=== PATIENT | female | born 1970 | race Caucasian/White ===

== ENCOUNTER 2018-11-10 19:07 | Emergency (ER) | payer BC ==
[~2018-11-10] VITALS: Ht 152.4 cm; Wt 51.7 kg
[~2018-11-10 19:07] MED LIST: Ativan1 MG SL; BISA10S PR; CVS DISPOSABLE399 ML PR; DIPHENHYDRAMINE PO; DOCU100 PO; ENOX40I SC; FERR325 PO; HYDACE5; IBUP400 PO; Milk Of Ma400 MG/5 M PO; NAPR550 PO; Norco 5-325 Ta1 EACH PO; OXYACE5T PO; PANT40 PO; PROACE100 PO; Pepcid20 MG PO; RXNAPNA550 PO; RXPROACE PO; SENN187 PO
[2018-11-10 19:35] LABS: BASOPHILS ABSOLUTE AUTO 0.07 K/mm3 (0.00-0.23); BASOPHILS PERCENT AUTO 1 % (0-2); EOSINOPHILS ABSOLUTE AUTO 0.77 K/mm3 (0.00-0.68); EOSINOPHILS PERCENT AUTO 9 % (0-6); Hematocrit 43.8 % (33.0-51.0); Hemoglobin 14.7 g/dL (11.5-16.0); IMMATURE GRAN ABSOLUTE AUTO 0.02 K/mm3 (0.00-0.10); IMMATURE GRAN PERCENT AUTO 0 % (0-1); LYMPHOCYTES ABSOLUTE AUTO 2.03 K/mm3 (0.84-5.20); LYMPHOCYTES PERCENT AUTO 25 % (21-46); MONOCYTES ABSOLUTE AUTO 0.52 K/mm3 (0.16-1.47); MONOCYTES PERCENT AUTO 6 % (4-13); Mean Corpuscular HGB 31.9 pg (26.0-34.0); Mean Corpuscular HGB Conc 33.6 g/dL (31.5-36.5); Mean Corpuscular Volume 95 fL (80-100); Mean Platelet Volume 8.7 fL (9.1-12.4); NEUTROPHILS ABSOLUTE AUTO 4.77 K/mm3 (1.96-9.15); NEUTROPHILS PERCENT AUTO 58 % (41-73); Platelet Count 311 K/mm3 (150-400); RDW Coefficient Variation 12.4 % (11.7-14.2); RDW Standard Deviation 43.2 fL (35.1-46.3); Red Blood Cell Count 4.61 M/mm3 (3.80-5.20); White Blood Cell Count 8.18 K/mm3 (4.00-11.30)
[2018-11-10 20:01] LABS: Alanine Aminotransfer (ALT/SGP 27 U/L (12-78); Albumin, Blood 4.5 g/dL (3.4-5.0); Albumin/Globulin Ratio 1.2 (0.8-1.8); Alk Phos 127 U/L (50-136); Anion Gap 7 mmol/L (6-16); Aspartate Aminotrans (AST/SGOT 20 U/L (12-37); Bilirubin, Total 1.1 mg/dL (0.1-1.0); Blood Urea Nitrogen 8 mg/dL (8-24); Bun/Creatinine Ratio 11.7 (12.0-20.0); CO2, Blood 27 mmol/L (21-32); Calcium, Blood 9.5 mg/dL (8.5-10.1); Chloride, Blood 104 mmol/L (98-108); Creatinine, Blood 0.69 mg/dL (0.40-1.00); Globulin, Blood 3.9 g/dL (2.2-4.0); Glomerular Filtration Rate >60 (60-); Glucose, Blood 99 mg/dL (70-99); Potassium, Blood 3.6 mmol/L (3.5-5.5); Sodium, Blood 138 mmol/L (136-145); Total Protein, Blood 8.4 g/dL (6.4-8.2); Troponin I <0.015 ng/mL (0.000-0.040)
[2018-11-10] MEDS ORDERED: ALBU90OI INH (20:20)
[2018-11-10] MEDS ORDERED: TIOT18 INH (20:20)
[2018-11-10] MEDS ORDERED: Prednisone20 MG PO (22:56)
== END 2018-11-10 23:08 | disposition home or self-care (01) ==
LOC: ER 19:07
PROVIDERS: Emergency Medicine
DX: J44.1 Chronic obstructive pulmonary disease with (acute) exacerbation (principal); Z88.5 Allergy status to narcotic agent; Z88.2 Allergy status to sulfonamides; Z87.891 Personal history of nicotine dependence
CPT/HCPCS: 36415; 71046; 80053; 83880; 84484; 85025; 85379; 93005; 93010; 94640; 99285-25; J7512

== ENCOUNTER → 2019-01-17 | Outpatient (CLI) | payer BC ==
[~2019-01-17] MED LIST changes: +ALBU90OI INH; +Prednisone20 MG PO; +TIOT18 INH
== END | disposition home or self-care (01) ==
LOC: LAB 18:00 → LAB SHORT 18:00
DX: R10.9 Unspecified abdominal pain (principal)
CPT/HCPCS: 87338

== ENCOUNTER → 2019-02-20 | Outpatient (CLI) | payer BC ==
[2019-02-20 16:05] LABS: Source, Urine Clean Catch
[2019-02-20 17:21] LABS: Bilirubin, Urine Neg (Neg); Blood, Urine Neg (Neg); Glucose Qualitative, Urine Neg (Neg); Ketones, Urine Neg (Neg); Leukocyte Esterase, Urine 3+ (Neg); Nitrite, Urine Pos (Neg); Protein, Urine Neg (Neg); Specific Gravity, Urine 1.005 (1.003-1.022); Urobilinogen, Urine NORM (Normal)
[2019-02-20 17:31] LABS: Appearance, Urine Clear (Clear); Bacteria Many /hpf; Color, Urine Yellow (P-Yellow); Red Blood Cells, Urine 0-2 /hpf (0-2); Squamous Epithelial Cells Mod /hpf (Few)
== END | disposition home or self-care (01) ==
LOC: LAB 16:02 → LAB SHORT 16:02
PROVIDERS: Nurse Practitioner Family
DX: N39.0 Urinary tract infection, site not specified (principal)
CPT/HCPCS: 81001; 87086

== ENCOUNTER → 2019-02-27 | Outpatient (CLI) | payer BC ==
[2019-03-02 13:04] LABS: Stool Occult Bld Immuno 1 Positive (NEGATIVE)
== END | disposition home or self-care (01) ==
LOC: LAB 16:30 → LAB SHORT 16:30
PROVIDERS: Nurse Practitioner Family
DX: Z12.11 Encounter for screening for malignant neoplasm of colon (principal)
CPT/HCPCS: G0328

== ENCOUNTER → 2019-08-01 | Outpatient (CLI) | payer BC | END | disposition home or self-care (01) | LOC: LAB SHORT 13:53 → LAB 13:53 | DX: N39.0 Urinary tract infection, site not specified (principal) | CPT/HCPCS: 87086; 87147 ==

== ENCOUNTER → 2020-09-09 | Outpatient (CLI) | payer BC ==
[2020-09-13 10:18] LABS: Stool Occult Bld Immuno 1 Positive (NEGATIVE)
== END ==
LOC: LAB 13:23 → LAB SHORT 13:23 → LAB FUT 09-12 09:05
PROVIDERS: Nurse Practitioner Family
DX: Z12.11 Encounter for screening for malignant neoplasm of colon (principal)
CPT/HCPCS: G0328

== ENCOUNTER 2021-10-08 15:52 | Inpatient (IN) | payer OTHER, BC ==
[~2021-10-08] VITALS: Ht 152.4 cm; Wt 67.3 kg
[2021-10-08] MEDS ORDERED: IBUP600 PO (19:02)
[2021-10-08] MEDS ORDERED: Percocet 5-3251 EACH PO (19:02)
[2021-10-08] MEDS ORDERED: ONDA4ODT MM (20:41)
[2021-10-08 23:38] LABS: BASOPHILS ABSOLUTE AUTO 0.02 K/mm3 (0.00-0.23); BASOPHILS PERCENT AUTO 0 % (0-2); EOSINOPHILS PERCENT AUTO 0 % (0-6); Hematocrit 31.4 % (33.0-51.0); Hemoglobin 10.5 g/dL (11.5-16.0); IMMATURE GRAN ABSOLUTE AUTO 0.07 K/mm3 (0.00-0.10); IMMATURE GRAN PERCENT AUTO 0 % (0-1); LYMPHOCYTES ABSOLUTE AUTO 0.79 K/mm3 (0.84-5.20); LYMPHOCYTES PERCENT AUTO 5 % (21-46); MONOCYTES PERCENT AUTO 3 % (4-13); Mean Corpuscular HGB 31.3 pg (26.0-34.0); Mean Corpuscular HGB Conc 33.4 g/dL (31.5-36.5); Mean Corpuscular Volume 94 fL (80-100); Mean Platelet Volume 8.6 fL (9.1-12.4); NEUTROPHILS ABSOLUTE AUTO 15.98 K/mm3 (1.96-9.15); NEUTROPHILS PERCENT AUTO 92 % (41-73); Platelet Count 316 K/mm3 (150-400); RDW Coefficient Variation 12.9 % (11.7-14.2); RDW Standard Deviation 44.4 fL (35.1-46.3); Red Blood Cell Count 3.36 M/mm3 (3.80-5.20); White Blood Cell Count 17.36 K/mm3 (4.00-11.30)
[2021-10-08 23:52] LABS: International Normalized Ratio 1.02; Prothrombin Time Results 10.7 Sec (9.7-11.5)
[2021-10-08 23:56] LABS: Alanine Aminotransfer (ALT/SGP 24 U/L (12-78); Albumin, Blood 3.7 g/dL (3.4-5.0); Albumin/Globulin Ratio 1.2 (0.8-1.8); Alk Phos 98 U/L (50-136); Anion Gap 6 mmol/L (6-16); Aspartate Aminotrans (AST/SGOT 21 U/L (12-37); Bilirubin, Total 0.7 mg/dL (0.1-1.0); Blood Urea Nitrogen 16 mg/dL (8-24); Bun/Creatinine Ratio 18.5 (12.0-20.0); CO2, Blood 25 mmol/L (21-32); Calcium, Blood 8.7 mg/dL (8.5-10.1); Chloride, Blood 103 mmol/L (98-108); Creatinine, Blood 0.87 mg/dL (0.40-1.00); Globulin, Blood 3.2 g/dL (2.2-4.0); Glomerular Filtration Rate >60 (60-); Glucose, Blood 144 mg/dL (70-99); Potassium, Blood 4.5 mmol/L (3.5-5.5); Sodium, Blood 134 mmol/L (136-145); Total Protein, Blood 6.9 g/dL (6.4-8.2)
[2021-10-09] MEDS ORDERED: SYMBICORT 160-4.6 GM INH (00:55)
[2021-10-09] MEDS ORDERED: CIME400 PO (00:57)
--- NOTE | 2021-10-09 02:03 | NUR ---
PT ARRIVED TO ROOM ACCOMPANIED BY AND SON. PT A/O, DENIES LOC W/FALL. VSS, LUNGS CLEAR. LLE IN SPLINT, CAP REFILL WNL, PT DENIES N/T. LUE IN IMMOBILIZER, PT DENEIS N/T TO LUE, PULSE AND CAP REFILL WNL. PT ORIENTED TO ROOM/CALL LIGHT AND NPO STATUS PENDING SURGERY PLANNING.
[2021-10-09 02:17] LABS: Influenza A, PCR NEGATIVE (NEGATIVE); Influenza B, PCR NEGATIVE (NEGATIVE); Resp Syncytial Virus, PCR NEGATIVE (NEGATIVE); SARS-Cov-2 (COVID-19) PCR, MMC NEGATIVE (NEGATIVE)
--- NOTE | 2021-10-09 07:20 | NUR ---
PT VSS SINCE ARRIVING TO FLOOR. PT APPEARED TO SLEEP FOR MOST OF NIGHT AFTER SETTLED INTO ROOM. PT MED FOR PAIN X1 W/1 PERCOCET W/REP RELIEF. PT DENEID N/T TO EXT, CAP REFIL LWNL. SPLINT INTACT TO LLE, IMMOBILIZER IN PLACE TO LUE. PT NPO X SIP OF WATER W/MED. PLAN FOR SURGERY TODAY.
[2021-10-09 12:31] LABS: BASOPHILS ABSOLUTE AUTO 0.01 K/mm3 (0.00-0.23); BASOPHILS PERCENT AUTO 0 % (0-2); EOSINOPHILS PERCENT AUTO 0 % (0-6); Hematocrit 28.5 % (33.0-51.0); Hemoglobin 9.2 g/dL (11.5-16.0); IMMATURE GRAN ABSOLUTE AUTO 0.02 K/mm3 (0.00-0.10); IMMATURE GRAN PERCENT AUTO 0 % (0-1); LYMPHOCYTES PERCENT AUTO 15 % (21-46); MONOCYTES ABSOLUTE AUTO 0.54 K/mm3 (0.16-1.47); MONOCYTES PERCENT AUTO 6 % (4-13); Mean Corpuscular HGB 30.5 pg (26.0-34.0); Mean Corpuscular HGB Conc 32.3 g/dL (31.5-36.5); Mean Corpuscular Volume 94 fL (80-100); Mean Platelet Volume 8.7 fL (9.1-12.4); NEUTROPHILS ABSOLUTE AUTO 6.66 K/mm3 (1.96-9.15); NEUTROPHILS PERCENT AUTO 78 % (41-73); Platelet Count 258 K/mm3 (150-400); RDW Coefficient Variation 13.1 % (11.7-14.2); RDW Standard Deviation 45.1 fL (35.1-46.3); Red Blood Cell Count 3.02 M/mm3 (3.80-5.20); White Blood Cell Count 8.53 K/mm3 (4.00-11.30)
[2021-10-09 12:34] LABS: Alanine Aminotransfer (ALT/SGP 22 U/L (12-78); Albumin, Blood 3.3 g/dL (3.4-5.0); Albumin/Globulin Ratio 1.1 (0.8-1.8); Alk Phos 90 U/L (50-136); Anion Gap 5 mmol/L (6-16); Aspartate Aminotrans (AST/SGOT 20 U/L (12-37); Blood Urea Nitrogen 11 mg/dL (8-24); Bun/Creatinine Ratio 14.8 (12.0-20.0); CO2, Blood 26 mmol/L (21-32); Calcium, Blood 8.3 mg/dL (8.5-10.1); Chloride, Blood 106 mmol/L (98-108); Creatinine, Blood 0.74 mg/dL (0.40-1.00); Glomerular Filtration Rate >60 (60-); Glucose, Blood 97 mg/dL (70-99); Sodium, Blood 137 mmol/L (136-145); Total Protein, Blood 6.3 g/dL (6.4-8.2)
[2021-10-09 12:37] LABS: Percent Saturation 12.5 % (15.0-50.0)
--- NOTE | 2021-10-09 19:25 | NUR ---
SHIFT SUMMARY S/P LUE/LLE FX, PLAN FOR OR TOMORROW, PAIN MANAGED T/O THE SHIFT, USED BEDPAN FOR VOIDS, TOLERATED DINNER, SURGEON DISCUSSING PLAN FOR OR WITH THE PATIENT. NO ACUTE EVENTS THIS SHIFT. CALL LIGHT IN REACH, REPORT GIVEN TO CRIS REID.
[2021-10-10 04:53] LABS: BASOPHILS ABSOLUTE AUTO 0.02 K/mm3 (0.00-0.23); BASOPHILS PERCENT AUTO 0 % (0-2); EOSINOPHILS ABSOLUTE AUTO 0.02 K/mm3 (0.00-0.68); EOSINOPHILS PERCENT AUTO 0 % (0-6); Hematocrit 27.3 % (33.0-51.0); Hemoglobin 8.8 g/dL (11.5-16.0); IMMATURE GRAN ABSOLUTE AUTO 0.03 K/mm3 (0.00-0.10); IMMATURE GRAN PERCENT AUTO 0 % (0-1); LYMPHOCYTES ABSOLUTE AUTO 1.71 K/mm3 (0.84-5.20); LYMPHOCYTES PERCENT AUTO 22 % (21-46); MONOCYTES ABSOLUTE AUTO 0.56 K/mm3 (0.16-1.47); MONOCYTES PERCENT AUTO 7 % (4-13); Mean Corpuscular HGB 30.4 pg (26.0-34.0); Mean Corpuscular HGB Conc 32.2 g/dL (31.5-36.5); Mean Corpuscular Volume 95 fL (80-100); Mean Platelet Volume 8.7 fL (9.1-12.4); NEUTROPHILS ABSOLUTE AUTO 5.31 K/mm3 (1.96-9.15); NEUTROPHILS PERCENT AUTO 69 % (41-73); Platelet Count 257 K/mm3 (150-400); RDW Coefficient Variation 12.9 % (11.7-14.2); RDW Standard Deviation 45.1 fL (35.1-46.3); Red Blood Cell Count 2.89 M/mm3 (3.80-5.20); White Blood Cell Count 7.65 K/mm3 (4.00-11.30)
--- NOTE | 2021-10-10 05:06 | NUR ---
PT IS A&OX4, MOD ASSIST IN BED AND CALLS APPROPRIATELY. SURGERY TO SHOULDER PLANNED FOR TODAY, PAIN CONTROLED WITH PERCOCET. PT ABLE TO SLEEP 6+ HOURS THIS SHIFT. PT HAS BEEN NPO SINCE MIDNIGHT. USES BED BYRD TO VOID. WILL CONTINUE TO MONITOR THIS PT FOR ANY ACUTE CHANGES AND GIVE HANDOFF REPORT TO ONCOMING RN.
[2021-10-10 05:20] LABS: Anion Gap 6 mmol/L (6-16); Blood Urea Nitrogen 8 mg/dL (8-24); Bun/Creatinine Ratio 11.8 (12.0-20.0); CO2, Blood 23 mmol/L (21-32); Chloride, Blood 107 mmol/L (98-108); Creatinine, Blood 0.68 mg/dL (0.40-1.00); Glomerular Filtration Rate >60 (60-); Glucose, Blood 99 mg/dL (70-99); Potassium, Blood 4.1 mmol/L (3.5-5.5); Sodium, Blood 136 mmol/L (136-145)
--- NOTE | 2021-10-10 09:15 | NUR ---
PT ATTEMPTED TO VOID USING BEDPAN PRIOR TO GOING TO OR#4, UNABLE TO VOID. PRINCIPAL CLERK AWARE. DENTURES REMOVED IN PT ROOM PRIOR TO COMING TO [facility]. SCOPE PATCH BEHIND LEFT EAR, TO BE REMOVED TOMORROW PER DR BELLO. NOTE PLACED IN "DIRECTIONS" WHEN ORDER WAS PLACED.
--- NOTE | 2021-10-10 18:15 | NUR ---
SHIFT SUMMARY POD0 L RTSA, A/O X4, VSS THOUGH BP HAS BEEN ON THE LOW END BUT HER MEAN BP HAS REMAINED OVER 65, CURRENTLY ON 3L NC, WAS ABLE TO BE ON 2L WHILE AWAKE BUT WAS DESATTING INTO UPPER 80'S WHEN ASLEEP. REPORTS N/T IN L HAND AND LOWER ARM, CIRCULATION IS GOOD AND SHE HAS MOTOR CONTROL IN HER WRIST AND FINGERS, ABLE TO SQUEEZE MY HAND THOUGH A LITTLE WEAK ON RESTAURANT BUSSER STRENGTH. PAIN WELL MANAGED. NO ACUTE EVENTS THIS SHIFT. CALL LIGHT IN REACH, WILL CTM AND REPORT TO NOC RN.
--- NOTE | 2021-10-11 01:31 | NUR ---
ASSUMED CARE OF THIS PT AT 0130. PT APPEARS TO BE SLEEPING WITH UNLABORED, EQUAL BREATHS. SITTING AT 90 DEGREE ANGLE IN BED, LEFT ARM IN SLING, ON A PILLOW. CALL LIGHT IN REACH, TANIA RYAN.
--- NOTE | 2021-10-11 01:33 | NUR ---
SUMMARY GAVE REPORT TO STUDENT NURSE SAMANTHA. PATIENT IS SLEEPING WITH NI S/S OF DISTRESS, CALL LIGHT IN REACH.
--- NOTE | 2021-10-11 01:45 | NUR ---
ASSUMED CARE OF PT. PT RESTING IN BED, APPEARS TO BE SLEEPING, RESP E/U, NO NO DISTRESS NOTED.
--- NOTE | 2021-10-11 04:10 | NUR ---
SHIFT SUMMARY, ASSUMED CARE AT 0130, PT A/OX4, POD 1 FOR TOTAL L SHOULDER. AQUASEL DRESSING TO THE KOFI, SUSANA. LEFT ARM IN A SLING RESTS ON PILLOW, WITH POLAR PACK IN PLACE. MEDICATED FOR PAIN OF 9/10 PER EMAR, PT TOLERATES PO INTAKE AND ON REASSESSMENT STATES PAIN IS AT A 6/10. VSS. CALL LIGHT IN REACH, WILL MONITOR.
[2021-10-11 05:12] LABS: BASOPHILS ABSOLUTE AUTO 0.01 K/mm3 (0.00-0.23); BASOPHILS PERCENT AUTO 0 % (0-2); EOSINOPHILS PERCENT AUTO 0 % (0-6); Hematocrit 23.5 % (33.0-51.0); Hemoglobin 7.6 g/dL (11.5-16.0); IMMATURE GRAN ABSOLUTE AUTO 0.07 K/mm3 (0.00-0.10); IMMATURE GRAN PERCENT AUTO 1 % (0-1); LYMPHOCYTES ABSOLUTE AUTO 1.13 K/mm3 (0.84-5.20); LYMPHOCYTES PERCENT AUTO 9 % (21-46); MONOCYTES ABSOLUTE AUTO 0.83 K/mm3 (0.16-1.47); MONOCYTES PERCENT AUTO 6 % (4-13); Mean Corpuscular HGB 30.5 pg (26.0-34.0); Mean Corpuscular HGB Conc 32.3 g/dL (31.5-36.5); Mean Corpuscular Volume 94 fL (80-100); Mean Platelet Volume 8.9 fL (9.1-12.4); NEUTROPHILS ABSOLUTE AUTO 11.27 K/mm3 (1.96-9.15); NEUTROPHILS PERCENT AUTO 85 % (41-73); Platelet Count 243 K/mm3 (150-400); RDW Coefficient Variation 12.5 % (11.7-14.2); RDW Standard Deviation 43.6 fL (35.1-46.3); Red Blood Cell Count 2.49 M/mm3 (3.80-5.20); White Blood Cell Count 13.31 K/mm3 (4.00-11.30)
[2021-10-11 05:39] LABS: Anion Gap 4 mmol/L (6-16); Blood Urea Nitrogen 12 mg/dL (8-24); Bun/Creatinine Ratio 16.3 (12.0-20.0); CO2, Blood 26 mmol/L (21-32); Calcium, Blood 8.1 mg/dL (8.5-10.1); Chloride, Blood 104 mmol/L (98-108); Creatinine, Blood 0.73 mg/dL (0.40-1.00); Glomerular Filtration Rate >60 (60-); Glucose, Blood 104 mg/dL (70-99); Potassium, Blood 4.6 mmol/L (3.5-5.5); Sodium, Blood 134 mmol/L (136-145)
--- NOTE | 2021-10-11 09:41 | NUR ---
10/11/21 0941 Ann Hassan VERIFICATIONS: EDIT CHART.
[2021-10-11 15:07] LABS: Hematocrit 24.2 % (33.0-51.0); Hemoglobin 7.8 g/dL (11.5-16.0)
--- NOTE | 2021-10-11 18:35 | NUR ---
SHIFT SUMMARY PT POD #1 FOR REVERSE TOTAL L SHOULDER. L ARM HELD IN PLACE WITH IMMOBILIZER AND SLING. AQUACEL TO L SHOULDER, CDI. L LEG IN CAST AND TOES HAVE GOOD CAP REFILL. PT WAS ABLE TO TRANSFER TO [facility] WITH A 1 PERSON ASSIST. MEDICATED FOR PAIN PER EMR. PT TO MA HOME WITH HOME HEALTH TOMORROW. VSS.
--- NOTE | 2021-10-11 18:57 | NUR ---
PT REFUSED MORNING ASPIRIN. EDUCATED PT ON IMPORTANCE OF MEDICATION TO PREVENT BLOOD CLOTS, BUT STILL REFUSED MEDICATION.
[2021-10-11 23:31] LABS: Hematocrit 22.3 % (33.0-51.0); Hemoglobin 7.6 g/dL (11.5-16.0)
--- NOTE | 2021-10-11 23:31 | NUR ---
2230 PT C/O OF NOT FEELING WELL AND R SIDE CX PRESSURE/ PAIN. DENIES SOB. DR GAMING CALLED AND EKG, D-DIMER, TROPIN, CXR AND TELE WAS ORDERED. NO OTHER ISSUES NOTED.
[2021-10-12 03:31] LABS: BASOPHILS ABSOLUTE AUTO 0.03 K/mm3 (0.00-0.23); BASOPHILS PERCENT AUTO 0 % (0-2); EOSINOPHILS PERCENT AUTO 0 % (0-6); Hemoglobin 8.4 g/dL (11.5-16.0); IMMATURE GRAN ABSOLUTE AUTO 0.03 K/mm3 (0.00-0.10); IMMATURE GRAN PERCENT AUTO 0 % (0-1); LYMPHOCYTES ABSOLUTE AUTO 0.83 K/mm3 (0.84-5.20); LYMPHOCYTES PERCENT AUTO 8 % (21-46); MONOCYTES PERCENT AUTO 4 % (4-13); Mean Corpuscular HGB 31.2 pg (26.0-34.0); Mean Corpuscular HGB Conc 33.6 g/dL (31.5-36.5); Mean Corpuscular Volume 93 fL (80-100); Mean Platelet Volume 8.7 fL (9.1-12.4); NEUTROPHILS ABSOLUTE AUTO 8.56 K/mm3 (1.96-9.15); NEUTROPHILS PERCENT AUTO 87 % (41-73); Platelet Count 285 K/mm3 (150-400); RDW Coefficient Variation 12.8 % (11.7-14.2); Red Blood Cell Count 2.69 M/mm3 (3.80-5.20); White Blood Cell Count 9.85 K/mm3 (4.00-11.30)
[2021-10-12] MEDS ORDERED: Aspir 8181 MG PO (12:19)
[2021-10-12] MEDS ORDERED: ACET500 PO (12:19)
[2021-10-12] MEDS ORDERED: BENADRYL25 MG PO (12:19)
[2021-10-12] MEDS ORDERED: Percocet 5-3251 EACH PO (12:20)
[2021-10-12] MEDS ORDERED: DOCU100 PO (12:20)
[2021-10-12] MEDS ORDERED: SENN187 PO (12:21)
[2021-10-12] MEDS ORDERED: VITAMIN D5000 UNIT PO (12:21)
--- NOTE | 2021-10-12 15:29 | NUR ---
DISCHARGE PT DISCHARGED AT 1520 WITH FAMILY VIA CAR. DISCHARGE INSTRUCTION REVIEWED WITH PATIENT/FAMILY. WHEELCHAIR PROVIDED FOR HOME USE. OT REINFORCED L ARM MOVEMENT RESTRICTIONS BEFORE DISCHARGE. TOLERATING PO INTAKE AND PASSING FLATUS. EXTRA DRESSINGS PROVIDED. PATIENT/FAMILY IN AGREEMENT WITH DISCHARGE PLAN. DRESSING ON LEFT UPPER ARM C/D/I, DENIES N/T. HARD COPY OF PRESCRIPTION GIVEN TO .
== END 2021-10-12 15:45 | disposition home or self-care (01) | DRG 483 ==
LOC: ER 15:52 → SURS 22:46
PROVIDERS: Family Medicine; Internal Medicine; Orthopaedic Surgery; ADMIT Internal Medicine
PROC: 0RRK00Z Replacement of Left Shoulder Joint with Reverse Ball and Socket Synthetic Substitute, Open Approach (ICD-10-PCS; principal; 2021-10-10 08:45)
DX: S42.302A Unspecified fracture of shaft of humerus, left arm, initial encounter for closed fracture (principal); S82.142A Displaced bicondylar fracture of left tibia, initial encounter for closed fracture; D50.0 Iron deficiency anemia secondary to blood loss (chronic); G89.29 Other chronic pain; M81.0 Age-related osteoporosis without current pathological fracture; D63.8 Anemia in other chronic diseases classified elsewhere; Z20.822 Contact with and (suspected) exposure to COVID-19; S92.335A Nondisplaced fracture of third metatarsal bone, left foot, initial encounter for closed fracture; S92.325A Nondisplaced fracture of second metatarsal bone, left foot, initial encounter for closed fracture; S92.345A Nondisplaced fracture of fourth metatarsal bone, left foot, initial encounter for closed fracture; S92.355A Nondisplaced fracture of fifth metatarsal bone, left foot, initial encounter for closed fracture; J43.9 Emphysema, unspecified; S82.492A Other fracture of shaft of left fibula, initial encounter for closed fracture; Y93.55 Activity, bike riding; Z88.5 Allergy status to narcotic agent; Z88.2 Allergy status to sulfonamides; Z88.8 Allergy status to other drugs, medicaments and biological substances; Z79.899 Other long term (current) drug therapy; Z90.710 Acquired absence of both cervix and uterus; Z98.890 Other specified postprocedural states; Z87.891 Personal history of nicotine dependence; V19.9XXA Pedal cyclist (driver) (passenger) injured in unspecified traffic accident, initial encounter
CPT/HCPCS: 0241U; 29105; 29515; 36415; 71045; 71260; 73030; 73060; 73200; 73562-LT; 73590; 73610; 73630; 73700; 76377; 80048; 80053; 82728; 83540; 83550; 84484; 85014; 85018; 85025; 85379; 85610; 93005; 93010; 94640; 94664; 94760; 96374; 97110; 97162; 97166; 97530; 97535; 99285-25; A9270; C1713; C1776; J0171; J0690; J0735; J1100; J1885; J2250; J2370; J2405; J2704; J2795; J3010; J7030; J7120; Q9967

== ENCOUNTER 2024-09-12 18:01 | Emergency (ER) | payer BC ==
[~2024-09-12] VITALS: Ht 149.9 cm; Wt 67.6 kg
[~2024-09-12 18:01] MED LIST changes: +ACET500 PO; +Aspir 8181 MG PO; +BENADRYL25 MG PO; +CIME400 PO; +IBUP600 PO; +ONDA4ODT MM; +Percocet 5-3251 EACH PO; +SYMBICORT 160-4.6 GM INH; +VITAMIN D5000 UNIT PO
[2024-09-12 18:44] LABS: BASOPHILS ABSOLUTE AUTO 0.04 K/mm3 (0.00-0.23); BASOPHILS PERCENT AUTO 1 % (0-2); EOSINOPHILS ABSOLUTE AUTO 0.15 K/mm3 (0.00-0.68); EOSINOPHILS PERCENT AUTO 2 % (0-6); Hematocrit 36.7 % (33.0-51.0); IMMATURE GRAN ABSOLUTE AUTO 0.02 K/mm3 (0.00-0.10); IMMATURE GRAN PERCENT AUTO 0 % (0-1); LYMPHOCYTES ABSOLUTE AUTO 2.18 K/mm3 (0.84-5.20); LYMPHOCYTES PERCENT AUTO 26 % (21-46); MONOCYTES PERCENT AUTO 6 % (4-13); Mean Corpuscular HGB Conc 32.7 g/dL (31.5-36.5); Mean Corpuscular Volume 92 fL (80-100); Mean Platelet Volume 8.6 fL (9.1-12.4); NEUTROPHILS ABSOLUTE AUTO 5.49 K/mm3 (1.96-9.15); NEUTROPHILS PERCENT AUTO 66 % (41-73); Platelet Count 350 K/mm3 (150-400); RDW Standard Deviation 44.3 fL (35.1-46.3); White Blood Cell Count 8.38 K/mm3 (4.00-11.30)
[2024-09-12 19:17] LABS: Albumin, Blood 3.9 g/dL (3.4-5.0); Albumin/Globulin Ratio 1.1 (0.8-1.8); Bilirubin, Total 0.5 mg/dL (0.1-1.0); Bun/Creatinine Ratio 13.6 (12.0-20.0); Calcium, Blood 9.7 mg/dL (8.5-10.1); Creatinine, Blood 0.88 mg/dL (0.40-1.00); Globulin, Blood 3.4 g/dL (2.2-4.0); Total Protein, Blood 7.3 g/dL (6.4-8.2)
[2024-09-12 19:30] VITALS: BP 134/81
== END 2024-09-12 20:25 | disposition home or self-care (01) ==
LOC: ER 18:01
PROVIDERS: Student in an Organized Health Care Education/Training Program
DX: R23.0 Cyanosis (principal); J44.9 Chronic obstructive pulmonary disease, unspecified; Z87.891 Personal history of nicotine dependence; Z88.5 Allergy status to narcotic agent; Z88.2 Allergy status to sulfonamides; Z79.899 Other long term (current) drug therapy; Z79.82 Long term (current) use of aspirin; Z79.2 Long term (current) use of antibiotics
CPT/HCPCS: 71045; 80053; 84484; 85025; 93005; 93010; 99284-25

== ENCOUNTER → 2024-12-24 | Outpatient (CLI) | payer BC | LOC: LAB SHORT 18:23 → LAB 18:23 | DX: N39.0 Urinary tract infection, site not specified (principal) | CPT/HCPCS: 87086 ==

== ENCOUNTER 2024-12-30 16:47 | Emergency (ER) | payer BC ==
[~2024-12-30] VITALS: Ht 149.9 cm; Wt 67.1 kg
[2024-12-30 17:22] LABS: BASOPHILS ABSOLUTE AUTO 0.03 K/mm3 (0.00-0.23); BASOPHILS PERCENT AUTO 0 % (0-2); EOSINOPHILS ABSOLUTE AUTO 0.14 K/mm3 (0.00-0.68); EOSINOPHILS PERCENT AUTO 2 % (0-6); Hematocrit 36.2 % (33.0-51.0); Hemoglobin 12.2 g/dL (11.5-16.0); IMMATURE GRAN ABSOLUTE AUTO 0.02 K/mm3 (0.00-0.10); IMMATURE GRAN PERCENT AUTO 0 % (0-1); LYMPHOCYTES ABSOLUTE AUTO 1.84 K/mm3 (0.84-5.20); LYMPHOCYTES PERCENT AUTO 20 % (21-46); MONOCYTES ABSOLUTE AUTO 0.52 K/mm3 (0.16-1.47); MONOCYTES PERCENT AUTO 6 % (4-13); Mean Corpuscular HGB Conc 33.7 g/dL (31.5-36.5); Mean Corpuscular Volume 93 fL (80-100); NEUTROPHILS ABSOLUTE AUTO 6.76 K/mm3 (1.96-9.15); NEUTROPHILS PERCENT AUTO 73 % (41-73); NRBC ABSOLUTE 0.00 K/mm3 (0.00-0.02); NRBC Auto 0.0 /100 WBC (0.0-0.2); Platelet Count 298 K/mm3 (150-400); RDW Coefficient Variation 12.7 % (11.7-14.2); RDW Standard Deviation 42.8 fL (35.1-46.3)
[2024-12-30 18:10] LABS: Anion Gap 6.0 mmol/L (3-11); Blood Urea Nitrogen 9.0 mg/dL (8-24); CO2, Blood 26.0 mmol/L (21-32); Calcium, Blood 9.0 mg/dL (8.5-10.1); Chloride, Blood 107.0 mmol/L (98-108); Creatinine, Blood 0.94 mg/dL (0.40-1.00); Glucose, Blood 106.0 mg/dL (70-99); Magnesium, Blood 1.9 mg/dL (1.6-2.4); Potassium, Blood 3.8 mmol/L (3.5-5.5); Sodium, Blood 135.0 mmol/L (136-145)
[2024-12-30 21:00] VITALS: BP 134/71
[2024-12-30] MEDS ORDERED: IBUP600 PO (21:01)
[2024-12-30] MEDS ORDERED: ACET500 PO (21:01)
== END 2024-12-30 21:00 | disposition home or self-care (01) ==
LOC: ER 16:47
PROVIDERS: Emergency Medicine
DX: M94.0 Chondrocostal junction syndrome [Tietze] (principal); J44.9 Chronic obstructive pulmonary disease, unspecified; Z87.891 Personal history of nicotine dependence; Z88.5 Allergy status to narcotic agent; Z88.2 Allergy status to sulfonamides; Z91.018 Allergy to other foods; Z79.51 Long term (current) use of inhaled steroids; Z79.82 Long term (current) use of aspirin; Z79.899 Other long term (current) drug therapy
CPT/HCPCS: 71046; 80048; 83735; 83880; 84484; 85025; 93005; 93010; 99285-25; A9270

== ENCOUNTER → 2025-03-03 | Outpatient (CLI) | payer BC | LOC: LAB 19:30 → LAB SHORT 19:30 | DX: N39.0 Urinary tract infection, site not specified (principal) | CPT/HCPCS: 87086 ==